=== PATIENT | male | born 1950 | race Caucasian/White ===

== ENCOUNTER 2018-07-10 11:04 | Outpatient (CLI) | payer MEDICARE, MEDICAID | END 2018-07-10 23:59 | disposition home or self-care (01) | LOC: CARD DIAG 11:04 | PROVIDERS: ATTEND Internal Medicine Cardiovascular Disease | DX: I08.1 Rheumatic disorders of both mitral and tricuspid valves (principal); I10 Essential (primary) hypertension; F17.200 Nicotine dependence, unspecified, uncomplicated | CPT/HCPCS: 93306 ==

== ENCOUNTER 2018-07-28 12:31 | Day surgery (SDC) | payer MEDICARE, MEDICAID ==
[~2018-07-28] VITALS: Ht 182.9 cm; Wt 132.8 kg
[2018-07-28] VITALS (9 sets, daily range): BP systolic 120–148; BP diastolic 69–89
[2018-07-28] MEDS ORDERED: diphenhydrAMINE 25mg capsule PO PRN (12:55)
[2018-07-28] MEDS ORDERED: normal saline 1000ml 1,000 ML IV SCH (12:55)
[2018-07-28] MEDS ORDERED: LORazepam 0.5 MG tablet PO PRN (12:55)
[2018-07-28] MEDS ORDERED: INDO50CA14 PO (13:08)
[2018-07-28] MEDS ORDERED: LISI10TA4 PO (13:08)
[2018-07-28] MEDS ORDERED: SIMV40TA4 PO (13:08)
[2018-07-28] MEDS ORDERED: ACET-3067 (13:08)
[2018-07-28] MEDS ORDERED: OMEP40CA37 PO (13:08)
[2018-07-28] MEDS ORDERED: ASPI-10 PO (13:14)
[2018-07-28] MEDS ORDERED: [UNRECOGNIZED DRUG - OTHER] (13:14)
[2018-07-28] MEDS ORDERED: CHANTIX (13:14)
[2018-07-28] MEDS ORDERED: GABAPENTIN PO (13:14)
[2018-07-28 13:19] LABS: BASOPHILS # (AUTO) 0.1 X10'3 (0-0.2); BASOPHILS % (AUTO) 1.4 % (0-1); EOSINOPHILS # (AUTO) 0.1 X10'3 (0-0.9); EOSINOPHILS % (AUTO) 1.3 % (0-6); HEMATOCRIT 47.4 % (42.0-52.0); HEMOGLOBIN 16.2 g/dl (14.0-17.9); LYMPHOCYTES # (AUTO) 2.1 X10'3 (1.1-4.8); LYMPHOCYTES % (AUTO) 27.6 % (21-51); MEAN CORPUSCULAR HEMOGLOBIN 34.7 PG (27.0-31.0); MEAN CORPUSCULAR HGB CONC 34.3 % (33.0-36.5); MEAN CORPUSCULAR VOLUME 101.2 FL (78-98); MEAN PLATELET VOLUME 8.3 FL (7.4-10.4); MONOCYTES # (AUTO) 0.4 X10'3 (0-0.9); MONOCYTES % (AUTO) 5.9 % (2-12); NEUTROPHILS # (AUTO) 4.9 X10'3 (1.8-7.7); NEUTROPHILS % (AUTO) 63.8 % (42-75); PLATELET COUNT 267 X10'3 (140-440); RED BLOOD COUNT 4.68 X10'6 (4.70-6.10); RED CELL DISTRIBUTION WIDTH 11.8 % (11.5-14.5); WHITE BLOOD COUNT 7.6 X10'3 (4.5-11.0)
[2018-07-28 13:24] LABS: ALBUMIN 3.9 G/DL (3.4-5.0); ANION GAP 13 (8-16); BLOOD UREA NITROGEN 21 MG/DL (7-18); BUN/CREATININE RATIO 17.5 (5.4-32.0); CALCIUM 8.9 MG/DL (8.5-10.1); CHLORIDE 104 MMOL/L (99-107); GLUCOSE 118 MG/DL (70-104); SODIUM 141 MMOL/L (135-145); TOTAL CARBON DIOXIDE 23.6 MMOL/L (24-32); eGFR 60 ML/MIN
[2018-07-28 13:35] LABS: PARTIAL THROMBOPLASTIN TIME 29 SECONDS (22-32); PROTHROMBIN TIME 9.9 SECONDS (9.0-12.0)
[2018-07-28] MEDS ORDERED: verapamil 2.5 mg/ml inj IV ONE (13:40)
[2018-07-28] MEDS ORDERED: LIDOcaine 1% (10mg/ml)w/preservative injection 20ml MDV ONE (13:40)
[2018-07-28] MEDS ORDERED: heparin 1,000unit/ml 10ml vial 10 ML ONE (13:40)
[2018-07-28] MEDS ORDERED: nitroGLYCERIN-Tridil 50MG/D5W 250 ML IV ONE (13:40)
[2018-07-28] MEDS ORDERED: iohexol 350 MG/ML 50ML vial IV ONE ×2 (13:40→14:54)
[2018-07-28] MEDS ORDERED: iohexol 350MG/ML 100ml bottle IV ONE ×2 (13:41→15:11)
[2018-07-28] MEDS ORDERED: fentaNYL/PF 50MCG/1 ML 2ML syringe ONE (14:25)
[2018-07-28] MEDS ORDERED: midazolam 2 mg/2 ml injection ONE (14:25)
--- NOTE | 2018-07-28 16:10 | NUR ---
Pt arrived to floor via gurney. Right groin site CDI, no bruising, no bleeding. at bedside. Explained plan of care to both of them. They verbalize understanding.
--- NOTE | 2018-07-28 16:32 | NUR ---
Request faxed to medical records to have pts med records faxed to Dr Rony Cochran at [facility].
--- NOTE | 2018-07-28 18:23 | NUR ---
Problems reprioritized. Patient report given, questions answered & plan of care reviewed with
--- NOTE | 2018-07-28 18:30 | NUR ---
Patient in room . I have received report from MEME Simeon and had the opportunity to ask questions and assume patient care.
[2018-07-28 18:51] LABS: ISTAT HGB ART 14.6 g/dl (14.0-18.0); ISTAT Hct ART 43 %PCV (42-52); ISTAT Hct MIX 42 %PCV (42-52); ISTAT O2 SATURATION ARTERIAL 98 % (95-98); ISTAT O2 SATURATION MIX VENOUS 65 % (60-80); ISTAT SOURCE ART; ISTAT SOURCE MIX
[2018-07-28] MEDS ORDERED: atorvastatin 20mg tablet PO SCH (21:00)
--- NOTE | 2018-07-28 21:00 | NUR ---
Patient discharged from unit. Patient provided post-op education, including discharge packet. Medication education and script provided. Tele monitor removed. IV catheter removed, tip intact. Gauze and tape applied. All questions answered. Patient safely left hospital with significant other. Patient's vitals stable. Groin site clean, dry, intact. Soft to touch, nontender. No bruising or swelling noted. Normal DP pulses, with normal capillary refill. Skin cool to touch. Patient alert, oriented, comfortable, and pain free. Patient denies any symptoms.
[2018-07-29] MEDS ORDERED: pantoprazole 40mg Tablet.DR PO SCH (07:30)
[2018-07-29] MEDS ORDERED: aspirin 325mg tablet, delayed-release (Ecotrin) PO SCH (08:00)
[2018-07-29] MEDS ORDERED: lisinopril 10 MG tablet PO SCH (08:00)
[2018-07-29] MEDS ORDERED: indomethacin 25mg capsule PO SCH (08:00)
== END 2018-07-28 21:06 | disposition home or self-care (01) ==
LOC: SSTAY O 12:31 → MED 3N 16:15 → SSTAY O 21:06
PROVIDERS: ATTEND Internal Medicine Cardiovascular Disease
DX: I25.118 Atherosclerotic heart disease of native coronary artery with other forms of angina pectoris (principal); E66.01 Morbid (severe) obesity due to excess calories; I10 Essential (primary) hypertension; I44.4 Left anterior fascicular block; E78.5 Hyperlipidemia, unspecified; J44.9 Chronic obstructive pulmonary disease, unspecified; K21.9 Gastro-esophageal reflux disease without esophagitis; M47.819 Spondylosis without myelopathy or radiculopathy, site unspecified; L40.8 Other psoriasis; F10.10 Alcohol abuse, uncomplicated; M19.90 Unspecified osteoarthritis, unspecified site; Z79.82 Long term (current) use of aspirin; Z68.39 Body mass index [BMI] 39.0-39.9, adult; Z86.69 Personal history of other diseases of the nervous system and sense organs; Z87.11 Personal history of peptic ulcer disease; Z79.891 Long term (current) use of opiate analgesic; Z87.891 Personal history of nicotine dependence; Z87.2 Personal history of diseases of the skin and subcutaneous tissue; Z86.14 Personal history of Methicillin resistant Staphylococcus aureus infection; Z79.899 Other long term (current) drug therapy; Z98.890 Other specified postprocedural states; Z82.49 Family history of ischemic heart disease and other diseases of the circulatory system
CPT/HCPCS: 36415; 80048; 82803; 85014; 85025; 85610; 85730; 92920; 93005; 93460; 99152; 99153; C1760; J1644; J2001; J2250; J3010; J7030; Q0163; Q9967; A4620; C1725; C1769; G0378; J3490

== ENCOUNTER 2022-07-05 09:08 | Outpatient (CLI) | payer MEDICARE, MEDICAID ==
[~2022-07-05] VITALS: Ht 182.9 cm; Wt 140.6 kg
[2022-07-05] VITALS (8 sets, daily range): BP systolic 112–126; BP diastolic 66–71
[~2022-07-05 09:08] MED LIST: ASPI-10 PO; CHANTIX; GABAPENTIN PO; INDO50CA96 PO; LISI10TA27 PO; OMEP40CA21 PO; SIMV-45 PO; [UNRECOGNIZED DRUG - OTHER]
[2022-07-05] MEDS ORDERED: nitroGLYCERIN 0.4mg SUBLingual tab SL PRN (09:55)
[2022-07-05] MEDS ORDERED: regadenoson 0.4mg/5ml syringe IV ONE (09:55)
[2022-07-05] MEDS ORDERED: aminophylline 500mg/20ml vial IV PRN (09:55)
[2022-07-05] MEDS ORDERED: normal saline 500ml IV soln 500 ML IV ONE (09:55)
== END 2022-07-05 23:59 | disposition home or self-care (01) ==
LOC: RAD 09:08
PROVIDERS: ATTEND Internal Medicine Cardiovascular Disease
DX: I25.10 Atherosclerotic heart disease of native coronary artery without angina pectoris (principal); J44.9 Chronic obstructive pulmonary disease, unspecified
CPT/HCPCS: 78452; 93017; A9500; J0280; J2785; J7040